=== PATIENT | female | born 1970 | race Caucasian/White ===

== ENCOUNTER 2022-07-25 07:47 | Outpatient (REF) | payer OTHER, SELFPAY | END 2022-07-25 07:48 | disposition home or self-care (01) | LOC: HO.HOSX 07:47 | PROVIDERS: Visit Provider Physician Assistant | DX: Z13.89 Encounter for screening for other disorder (principal) ==

== ENCOUNTER 2022-09-04 07:40 | Outpatient (REF) | payer OTHER, SELFPAY | END 2022-09-04 07:41 | disposition home or self-care (01) | LOC: HO.HOSX 07:40 | PROVIDERS: Visit Provider Physician Assistant | DX: Z13.89 Encounter for screening for other disorder (principal) ==

== ENCOUNTER 2022-09-29 07:01 | Outpatient (REF) | payer OTHER, SELFPAY | END 2022-09-29 07:02 | disposition home or self-care (01) | LOC: HO.HOSX 07:01 | PROVIDERS: Visit Provider Physician Assistant | DX: Z13.89 Encounter for screening for other disorder (principal) ==

== ENCOUNTER 2024-11-30 07:47 | Outpatient (REF) | payer MEDICAID, SELFPAY ==
--- NOTE | ~2024-11-30 | XR_ITS ---
EXAMINATION: XR WRIST NAVICULAR LEFT HISTORY: M25.532 - Pain in left wrist COMPARISON: Comparison is made with the prior examination dated 05/12/2019. FINDINGS: Four views of the left wrist including a scaphoid view are submitted. The bones are osteopenic. There is no fracture or dislocation. There is mild degenerative change involving the 1st carpometacarpal joint. The soft tissues are unremarkable. XR/XR wrist LT w scaphoid IMPRESSION: Mild degenerative change involving the 1st carpometacarpal joint. Electronically signed by: Cruz Patrick MD 11/30/2024 09:09 AM EDT
--- OUTSIDE RECORDS SUMMARY | 2024-11-30 07:49 | XMS_ITS ---
Author Organization [facility] Address [address] [place] [address] Phone Care Team Providers Care Bistro Server Name Role Phone Chela San MD Primary Care Provider Active Problems Problem Noted Date Diagnosed Date Vertigo 08/10/2024 Acute intractable headache 08/10/2024 Acute right ankle pain 08/10/2024 Cigarette smoker motivated to quit 08/10/2024 Mild intermittent asthma without complication Insomnia 08/10/2024 BRCA gene mutation positive 02/11/2024 Overview (02/11/2024): Declines mastectomy; getting MRIs Last Assessment & Plan: When she meets with med onc re this new renal cancer, recommend discussion about chemoprophylaxis if effective for BRCA pos (such as raloxifene - has a DVT risk also) Clear cell carcinoma of kidney (CMS/HCC V24, CMS /HCC V28) 02/11/2024 Constipation 02/11/2024 COPD (chronic obstructive pu lmonary disease) (CMS/HCC V24, CMS/HCC V28) 02/11/2024 Depression 02/11/2024 Diabetes mellitus type 1 (CMS/HCC V24, CMS/HCC V 28) 02/11/2024 Hypercholesterolemia 02/11/2024 Macrocytosis 02/11/2024 Malignant neoplasm of uterus (CMS/HCC V24, 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 V24, [facility] V28) 08/14/2023 Overview (02/11/2024): Last Assessment & Plan: Wrote the letter for the patient's up coming SSDI court case. Letter printed out and she will pick it up tomorrow Dysuria 08/14/2023 Overview (02/11/2024): Last Assessment & Plan: She has been experiencing dysuria for several days. Will order a UA and send the results to her PCP for management Type 1 diabetes mellitus wit h renal manifestations ([facility] V24, [facility] V28) 09/15/2022 Overview (02/11/2024): DM Type I onset age 26. Multiple hospital admits w/ diabetic ketoacidosis 10/2014, 09/2015 Last Assessment & Plan: Control is suboptimal based upon the patient's Dexcom G6 download and her last episode of severe hypoglycemia. In June she was getting up to get juice for a low that came on all of a sudden. When she got up she fell and broke her left humerus and split her lip. Her boyfriend was able to get her juice and she was then fine. She waited almost 2 weeks before going to the hospital to have her arm looked at. She lowered her basaglar to 22 units and hasn't had any severe episodes of hypoglycemia since. She will be sending in paperwork to have completed to help with her social security/disability claim. Will maintain her insulin regimen as there is no pattern in her glucose levels to be able to make medication adjustments. Continue to work on eating healthy and being active. To call or message with any issues managing her glucose levels. Up to date with ophtho. Labs ordered Disease due to severe acute respiratory syndrome coronavirus 2 (SARS-CoV-2) 01/03/2022 Overview (02/11/2024): Problem added by Discern Expert History of partial nephrectomy 04/12/2021 Overview (02/11/2024): Added automatically from request for surgery [id number] History of alcohol dependence ([facility] V24, [facility] V28) 11/01/2020 Irritability and anger 11/01/2020 Memory difficulties 11/01/2020 Menopausal syndrome (hot flushes) 11/01/2020 Overview (02/11/2024): Remaining ovary removed 2014; has severe night sweats disturbing sleep Recently had abnormal liver tests and ? Dilatated portal vessels on imaging, f/u is pending These are persisting on good glucose control and she does not think these are due to a response to hypoglycemia based on her glucose monitor (levels checked every 15 minutes0 Last Assessment & Plan: Discussed non-ERT rx options and ERT Only concern re ERT at this time is the status of her liver - would prefer use of patch in general to reduce any impact on liver and DVT risk; pros and cons and risks of ERT reviewed Need the OK from her primary or GI in reference to her liver prior to starting an ERT patch Moderate episode of recurren t major depressive disorder (CMS/HCC V24, [facility] V28) 11/01/2020 Vulvovaginitis due to yeast 03/14/2020 Overview (02/11/2024): Erythema noted IDDM remains brittle, pump not working in May and she had DKA, glucose 1100 Last Assessment & Plan: Treat with terazol 7 and topical nystatin and triamcin. Left renal mass 06/27/2019 Overview (02/11/2024): Added automatically from request for surgery [id number] Monoallelic mutation of CHEK2 gene in female pat ient 08/05/2017 Adhesive capsulitis of left shoulder 06/23/2017 Anxiety 10/24/2016 Tobacco use disorder 07/11/2014 CIS (carcinoma in situ of cervix) 05/18/1998 Current Oncology Plans No current plan information found. Past Plans No past plan information found. Radiation Treatments * No radiation treatments are documented for this patient in [facility]. Treatments may have been administered in another system. Lifetime Dose Tracking * Chemical Lifetime Dose Automatic Entry Manual Entr y CTDIvol 64.84 mGy 64.84 mGy 0 mGy
--- OUTSIDE RECORDS SUMMARY | 2024-11-30 07:49 | XMS_ITS | Encounter Summary ---
Author Organization [facility] Address [address] [place] [address] Care Team Providers Care Nursing Home Aide Name Role Phone Jhony Keller MD Primary Care Provider [phone] Reason for Visit * Reason Comments Appointment Top 5 Cancer Consult Encounter Details Date Type Department Care Team (Late st Contact Info) Description 03/21/2021 Telephone [facility] Urologic Surgery [place] [address] [phone] Chon Bob MD [address] [address] Appointment (Top 5 Cancer Consult) Social History Tobacco Use Types Packs/Day Years Used Date Smoking Tobacco: Never Assessed Comments Unknown Sex and Gender Information Value Date Recorded Sex Assigned at Not on file Legal Sex Female 12:34 PM EDT Gender Identity Not on file Sexual Orientation Not on file documented as of this encounter Plan of Treatment Not on file documented as of this encounter Visit Diagnoses Not on filedocumented in this encounter Care Teams Nursing Home Aide Relationship Specialty Start Date End Date Jhony Keller MD [address] [place] [id number] PCP - General Urology 03/18/21 documented as of this encounter
--- OUTSIDE RECORDS SUMMARY | 2024-11-30 07:49 | XMS_ITS | Clinical Summary ---
Author Organization [facility] Address [address] [address] Phone Care Team Providers Care Laborer Driver Name Role Phone JaswinderChela Primary Care Provider [phone] Allergies Active Allergy Reactions Criticality Noted Date Comments Morphine Hives 05/29/2014 Other Reaction(s): hives/rash Mushroom Extract Complex (Obsolete) Hives 08/14/2023 Shellfish Allergy Hives 02/28/2020 Medications albuterol HFA (PROVENTIL HFA;VENTOLIN HFA) 108 (90 Base) MCG/ACT inhaler Inhale 2 puffs 0 026 Active aspirin (ST RAY) 81 MG EC tablet Take 81 mg by mouth in the morning. 3 Active Calcium Carb-Cholecalc iferol 500-10 MG-MCG tablet Take 2 tablets by mouth 3 Active cetirizine (ZyrTEC) 10 MG tablet Take 1 tablet by mouth 1 (one) time each day 4 Active Continuous Glucose Sensor (Dexcom G7 Sensor) misc CHANGE SENSOR EVERY 10 DAYS Active FLUoxetine (PROzac) 40 MG capsule 3 Active gabapentin (NEURONTIN) 300 MG capsule take 1 capsule (300 mg total) by mouth 2 times a day. Active hydrOXYzine (ATARAX) 50 MG tablet Take 50 mg by mouth 2 Active Insulin Aspart FlexPen 100 UNIT/ML solution pen-injector Up to 20 units via sliding scale subcutaneously TID ac meals 4 Active insulin glargine (Lantus SoloStar) 100 UNIT/ML injection Inject 13 Units under the skin in the morning and 13 Units in the evening. 4 Active meclizine (ANTIVERT) 12.5 MG tablet Take 12.5 mg by mouth 3 times daily as needed 5 026 Active methylPREDNISo lone (MEDROL DOSPAK) 4 MG tablet TAKE 6 TABLETS ON DAY 1 DIRECTED ON PACKAGE AND DECREASE BY 1 TAB EACH DAY FOR A TOTAL OF 6 DAYS 5 Active Multiple Vitamin (Multi-Vitamin ) tablet Take 1 tablet by mouth 1 (one) time each day Active Multiple Vitamins-Marmora als (Oncovite) tablet Take 1 tablet by mouth in the morning. Active nicotine (NICODERM CQ) 21 MG/24HR 4 Active predniSONE (DELTASONE) 20 MG tablet Take 60 mg PO daily for 3 days, then take 40 mg PO daily for 3 days, then 20 mg PO daily for 3 days, then stop 5 Active [employer] Lubricant Eye Drops 0.6 % solution instill 1 drop into both eyes 4 times a day 5 Active QUEtiapine (SEROquel) 200 MG tablet Take 200 mg by mouth in the morning. Active atorvastatin (LIPITOR) 10 MG tablet Take 10 mg by mouth in the morning. 4 Active Active Problems Problem Noted Date Diagnosed Date At increased risk of malignant neoplasm of breas t 04/18/2024 Family history of malignant neoplasm of breast 1 06/19/2023 H/O: malignant neoplasm 04/18/2024 Overview (04/18/2024): Diagnosed at age 32. s/p excision of ovarian mass, benign 2015 Chronic obstructive pulmonary disease 02/11/2024 Clear cell carcinoma of kidney 02/11/2024 Constipation 02/11/2024 Cyst of ovary 02/11/2024 Hypercholesterolemia 02/11/2024 Macrocytosis 02/11/2024 Malignant neoplasm of uterus 02/11/2024 Proteinuria 02/11/2024 Type 1 diabetes mellitus 02/11/2024 Vitamin D deficiency 02/11/2024 Dysuria 08/14/2023 Overview (04/18/2024): Last Assessment & Plan: She has been experiencing dysuria for several days. Will order a UA and send the results to her PCP for management History of partial nephrectomy 04/12/2021 Overview (04/18/2024): Added automatically from request for surgery [id number] H/O: alcoholism 11/01/2020 Irritability and anger 11/01/2020 Memory impairment 11/01/2020 Menopausal flushing 11/01/2020 Overview (04/18/2024): Remaining ovary removed 2014; has severe night [...] liver prior to starting an ERT patch Renal mass 06/27/2019 Overview (04/18/2024): Added automatically from request for surgery [id number] Genetic mutation 12/10/2016 Overview (04/18/2024): 44% lifetime risk of breast cancer 8-15% lifetime risk of colon cancer Recommendations are breast exam clinically every 6 months Mammogram and breast MRI alternating starting at age 40 Colonoscopy every 5 years. Anxiety 10/24/2016 Tobacco user 07/11/2014 Carcinoma in situ of uterine cervix 05/18/1998 Immunizations Immunization Administration Dates Next Due Influenza (IM) Preservative Free 01/28/2020,01/17 Influenza Whole 02/10/2011,03/04/2010,03/02/2008 Influenza, MDCK, PF, Quadrivalent 04/22/2019 Influenza, Quadrivalent, Pre servative Free 05/29/2021,01/28/2020 Influenza, Unspecified 01/16/2014 Pfizer SARS-COV-2 05/29/2021,,10/30/2020,10/11,09/20/2020 Pneumococcal Polysaccharide 05/27/2019, 2 Td, Unspecified 06/02/2000 Tdap 08/16/2010 Social History Tobacco Use Types Packs/Day Years Used Date Smoking Tobacco: Never Assessed Comments Unknown Sex and Gender Information Value Date Recorded Sex Assigned at Not on file Legal Sex Female 1:50 PM EST Gender Identity Not on file Sexual Orientation Not on file Last Filed Vital Signs Vital Sign Reading Time Taken Comments Blood Pressure 144/78 08/12/2024 9:57 AM EDT Pulse 88 08/12/2024 9:57 AM EDT Temperature - - Respiratory Rate - - Oxygen Saturation 99% 08/12/2024 9:57 AM EDT Inhaled Oxygen Concentration - - Weight 67.6 kg (149 lb) 08/12/2024 9:57 AM EDT Height - - Body Mass Index - - Plan of Treatment Health Maintenance Due Date Last Done Comments Breast Cancer Screening 1972 Hepatitis B Vaccine (1 of 3 - 19+ 3-dose series) 11/27/1991 Colorectal Cancer Screening: Annual FOBT 2021 Colorectal Cancer Screening: Colonoscopy 2021 Colorectal Cancer Screening: Sigmoidoscopy 2021 Pneumococcal Vaccine: 50+ Ye ars (3 of 3 - PCV) 02/07/2022 02/07/2021, 05/27/2019, 06/02/2001 Diabetes: Hemoglobin A1C 03/29/2024 Diabetes: Ophthalmology Exam 03/29/2024 Diabetes: Pedal Pulse Checked 03/29/2024 Diabetes: Sensory Foot Exam 03/29/2024 Diabetes: Visual Foot Exam 03/29/2024 Influenza Vaccine (#1) 2025 , 02/02/2023, 01/22/2023, Additional history exists Pneumococcal Vaccine: Peds ( 0 to 5 Years) and At-Risk Patients (6 to 49 Years) Discontinued 02/07/2021, 05/27/2019, 06/02/2001 Insurance Medicaid [place] Care Teams Laborer Driver Relationship Specialty Start Date End Date Chela San [address] [place] [address] PCP - General 08/12/24
--- OUTSIDE RECORDS SUMMARY | 2024-11-30 07:50 | XMS_ITS | Patient Health Record ---
Author Organization [employer] [facility] Address [address] [place] [address] [address] [place] [address] Care Team Providers Care Chief Librarian Circulation Department Name Role Phone MAIRA KUO Primary Care Provide Maryjane Cuellar Unavailable [phone] Allergies Allergen (clinical drug ingredient) Drug/Non Drug Allergy documented on EMR Reaction Allergy Type Onset Date Status morphine MORPHINE Skin Rash Drug Allergy Active Reason For Referral No Information Medications Medication SIG (Take, Route, Frequency, Duration) Notes Start Date End Date Status Simvastatin 20MG 1 ORAL daily; Duration: -3 Reji-MJ 2010 Active Valacyclovir HCl 500 MG 1 tablet PO bid at earliest sign of outbreak; Duration: 3 days 06/27/2016 Active HumaLOG ORAL; Duration: -3 Reji-MJ 03/26/2011 Active Problems Problem Type SNOMED Code ICD Code Onset Dates Problem Status W/U Status Risk Notes Problem Menopausal symptom (10372336) Symptomatic menopausal or female climacteric states (627.2) Active confirmed Problem Herpetic vulvovaginitis (32800043) Herpesviral vulvovaginitis (A60.04) Active confirmed Problem Ulcerative colitis (92459068) Ulcerative colitis, unspecified, without complications (K51.90) Active confirmed Problem Herpes simplex without complication (450493933) Herpes simplex without mention of complication (054.9) Active confirmed Major Problem Type II diabetes mellitus without complication (957570016) Diabetes mellitus without mention of complication, type II or unspecified type, not stated as uncontrolled (250.00) Active confirmed Major Problem Hyperlipidemia (35729778) Other and unspecified hyperlipidemia (272.4) Active confirmed Major Plan Of Treatment Pending Test Test Name Order Date Mammogram, left breast 06/27/2016 Mammogram, right breast 06/27/2016 RPR 09/06/2014 Hepatitis C antibody 09/06/2014 HIV 09/06/2014 MAMMOGRAM, SCREENING 08/02/2014 Ultrasound : Pelvic 09/06/2014 Mammogram (Bilateral), Diagnostic comput er aided 12/12/2015 ONE SWAB 06/27/2016 Hep B S antigen 09/06/2014 MM Digital Mammo Screening 08/14/2015 Medical (General) History Medical History History ICD Code Herpesviral infection, unspecified B00.9 Other hyperlipidemia E78.4 Type 2 diabetes mellitus without complic ations E11.9 Menopausal and female climacteric states N95.1 Ulcerative colitis, unspecified, without complications Surgical History Surgery Date(Month/Year) radical hyst 1998 (cervical ACIS) 1998 RSO 2008 L nephrectomy for Ca 2004 LSO with lysis adhesions (cystadenofibro ma) 2014 Hospitalization History Reason Date(Month/Year) See Surgical Hx
--- OUTSIDE RECORDS SUMMARY | 2024-11-30 07:50 | XMS_ITS ---
Author Name [facility] Organization Unknown Care Team Organization Name Specialty Phone Email Start Date End [facility] BRIGIDO COLLAZO Primary Care 04/03/[id number]
== END 2024-11-30 07:48 | disposition home or self-care (01) ==
LOC: HO.HOSX 07:47
DX: M25.532 Pain in left wrist (principal); R20.0 Anesthesia of skin; R20.2 Paresthesia of skin
CPT/HCPCS: 73110; 99212

== ENCOUNTER 2024-11-30 08:14 | Outpatient (AMB) | payer MEDICAID, SELFPAY ==
--- NOTE | 2024-11-30 08:26 | MHC.OFFVIS ---
Intake Visit Reasons: OV: left wrist pain Intake Note: Mela is a 54 year old right hand dominant female who presents today for a follow up for her strain of left forearm s/p left carpal and cubital tunnel release DOS: 04/06/23 w/ Dr Conner. Patient reports her pain has gradually worsened in her left forearm. She states even holding dishes to wash them is painful. She expresses she has dropped objects from her left hand. She had an agency come to her home for evaluation of needing a home health aid and says she qualifies due to her pain. She has tried OT before surgery and says she still does home exercises however nothing helps her pain. She explains that wrapping her wrist helps her pain however she can not have it wrapped all the time. She states she is experiencing contracture of her 3rd left digit. Allergies morphine (MORPHINE) Allergy (Severe, Verified 11/30/24 08:33) RASH mushroom Allergy (Severe, Verified 11/30/24 08:34) Hives LOBSTER Allergy (Severe, Uncoded 11/30/24 08:33) HIVES HPI HPI OV: left wrist pain: Details: Mela is a 54 year old right hand dominant female who presents today for a follow up for her strain of left forearm s/p left carpal and cubital tunnel release DOS: 04/06/23 w/ Dr Conner. Patient reports her pain has gradually worsened in her left forearm. She states even holding dishes to wash them is painful. She expresses she has dropped objects from her left hand. She had an agency come to her home for evaluation of needing a home health aid and says she qualifies due to her pain. She has tried OT before surgery and says she still does home exercises however nothing helps her pain. She explains that wrapping her wrist helps her pain however she can not have it wrapped all the time. Patient states that her left hand numbness and tingling is worse than it was prior to surgery. [facility] Medical History (Updated 12/01/24 @ 22:20 by NOAM Lewis) HTN (hypertension) Diabetes mellitus Malignant neoplasm of left kidney Rotator cuff impingement syndrome of left shoulder Surgical History (Updated 07/22/24 @ 10:30 by Ashley Singer) S/P gastric surgery H/O bilateral oophorectomy History of kidney surgery History of hysterectomy Social History (System 07/22/24 @ 10:30 by Ashley Singer) Alcohol intake: never Comment: counts correct Patient Tobacco Use Status: Current everyday Tobacco user Tobacco use type: Cigarette Cigarettes Per Day: 3 Years Smoked: 26 Current occupational status: disabled Current occupation: rt hand Review of Systems Const All systems reviewed & are unremarkable except as noted in HPI and below Physical Exam Extrem Other: Neuro: Normal sensation of the tips of all digits of the left hand in the office today No thenar or intrinsic wasting. Good APB muscle firing and good finger cross. Vascular: Capillary refill brisk. ROM: Patient can make a fist and extend all their digits. Skin: No lacerations or abrasions noted. General: No ecchymosis. No erythema or evidence of infection. [] Results Reviewed Results Reviewed: X-rays obtained in the office today and independently reviewed by me, Jaime Mills PA-C, demonstrate no fracture or acute bony abnormality of the left wrist. Assessment & Plan Assessment & Plan (1) Numbness and tingling of left hand: Code(s): R20.0 - Anesthesia of skin; R20.2 - Paresthesia of skin Category: Medical Plan 1. Numbness and tingling of left hand Status post left carpal and cubital tunnel releases in 2022 Patient is educated about this condition Patient is educated about the typical recovery course At this time, EMG and nerve conduction study is ordered to assess if there is potential recurrence of carpal and/or cubital tunnel syndromes in the left side Patient understands this in his amenable to this plan Follow-up after EMG and nerve conduction study. Orders: Orders NE electromyogram (EMG) 11/30/24 R20.0 - Anesthesia of skin, R20.2 - Paresthesia of skin XR wrist LT w scaphoid 11/30/24 M25.532 - Pain in left wrist NE nerve conduction velocity 11/30/24 R20.0 - Anesthesia of skin, R20.2 - Paresthesia of skin Coding Level of Care Code Est Pt Level 3 (91328) Diagnoses Numbness and tingling of left hand R20.0; R20.2
== END 2024-11-30 08:58 | disposition home or self-care (01) ==
LOC: HO.HOS 08:14
PROVIDERS: PCP Internal Medicine
DX: R20.0 Anesthesia of skin (principal); R20.2 Paresthesia of skin
CPT/HCPCS: 99213

== ENCOUNTER → 2024-11-30 08:16 | Outpatient (BNV) | payer MEDICAID, SELFPAY | PROVIDERS: Visit Provider Radiology Diagnostic Radiology | DX: M25.532 Pain in left wrist (principal) | CPT/HCPCS: 73110 ==